=== PATIENT | male | born 1960 | race Caucasian/White ===

== ENCOUNTER 2019-05-10 17:02 | Emergency (ER) | payer OTHER ==
--- OUTSIDE RECORDS SUMMARY | 2019-05-10 17:09 | XMS REPORT | Continuity of Care Document ---
:1960 External Reference #:[id number] Author Name Ki Hicks MD Address [address] [place] [address] Care Team Providers Name Role Phone Derek Bass MD - Surgery Care Team Information Music Coordinator Baljit Diego MD - Otolaryngology Care Team Information Music Coordinator [phone] [facility] Care Team Information Music Coordinator Heath Patrick MD - Care Team Information Music Coordinator [phone] Gastroenterology Bernardo Melgar MD - Care Team Information Music Coordinator [phone] Gastroenterology Ki Hicks MD - Internal Care Team Information Music Coordinator Medicine Problems Active Problems Provider Date Restless legs Iona Reddy MD Onset: 03/31/2015 Generalized anxiety disorder Iona Reddy MD Onset: 03/31/2015 Osteoarthritis Irina Lema PA-C Onset: 11/20/2015 Note: R knee (xray Oct 2015) with small effusion. R hand Derangement of medial meniscus Steve Llanos M.D. Onset: 05/02/2016 Impotence of organic origin Iona Reddy MD Onset: 07/25/2017 Mild intermittent asthma Iona Reddy MD Onset: 07/25/2017 Insomnia Iona Reddy MD Onset: 07/25/2017 Chronic fatigue syndrome Iona Reddy MD Onset: 07/25/2017 Social History Type Date Description Comments Sex Unknown Tobacco Use Start: Unknown Never Smoked Cigarettes Smoking Status Reviewed: 03/30/19 Never Smoked Cigarettes ETOH Use Uses Alcohol Daily ETOH Use daily drink Tobacco Use Start: Unknown Patient denies history of smoking Recreational Drug Use Marijuana Former-as a teen Allergies, Adverse Reactions, Alerts Active Allergies Reaction Severity Comments Date NKDA 07/25/2017 Dust 03/31/2015 Inactive Allergies Dust Mites 03/31/2015 Medications Active Medications SIG Qnty Indications Ordering Date Provider Fenofibrate 1 tab by mouth 30caps E78.5 Iona Reddy, 09/15/2018 Micronized every day 67mg Capsules Bupropion take 1 tablet by 30tabs Z53.20 Iona Reddy, 08/04/2018 Hydrochloride ER (XL) mouth every morning MD 150mg Tablets ER 24HR Tadalafil 1 tab by mouth as 14tabs Iona Reddy, 08/04/2018 10mg Tablets needed 30 min prior MD to intercourse Ventolin HFA 1-2 puffs every 4-6 8gm Iona Reddy, 04/02/2016 hours as needed 108(90Base) mcg/Act Aerosol Medications Administered in Office Medication SIG Qnty Indications Ordering Provider Date Methylprednisolone acetate Sendy Khan, 12/21/2015 (Depomedrol) 80mg injection RPAC Injection Immunizations CPT Code Status Date Vaccine Lot # [id number] Given 07/05/2016 Td Preservative Free For Use In Individuals 7 Yrs [id number] Or Older [id number] Given 02/02/2016 Influenza Virus Vaccine Split Virus Use For [id number] Individual 3Yr Older Vital Signs Date Vital Result Comment 03/30/2019 7:49am BP Systolic Sitting Left Arm 120 mmHg BP Diastolic Sitting Left Arm 70 mmHg Body Temperature 97.1 F Heart Rate 69 /min Respiratory Rate 18 /min Height 71 inches 5'11" Weight 236.00 lb BMI (Body Mass Index) 32.9 kg/m2 BSA (Body Surface Area) 2.26 m2 [place] body weight in kilograms 78 kg O2 % BldC Oximetry 96 % Ra 09/15/2018 3:23pm BP Systolic Sitting Left Arm 122 mmHg BP Diastolic Sitting Left Arm 80 mmHg Body Temperature 98.3 F Heart Rate 72 /min Respiratory Rate 18 /min Height 71 inches 5'11" Weight 224.00 lb BMI (Body Mass Index) 31.2 kg/m2 BSA (Body Surface Area) 2.21 m2 [place] body weight in kilograms 78 kg O2 % BldC Oximetry 95 % Ra Results Description No Information Available Procedures Date Code Description Status 08/26/2016 13509658 Colonoscopy Completed Medical Devices Description No Information Available Encounters Type Date Location Provider Dx Diagnosis Office Visit 03/30/2019 [facility] [id number] Proc/trtmt not crd 7:50a Office MD Ki out bec pt decision for unsp reasons E78.5 Hyperlipidemia, unspecified R53.82 Chronic fatigue, unspecified F41.1 Generalized anxiety disorder Z91.14 Patient's other noncompliance with medication regimen Z28.21 Immunization not carried out because of patient refusal Assessments Date Code Description Provider 03/30/2019 Z53.20 Procedure and treatment not carried out Ki Hicks MD because of patient's decision for unspecified reasons 03/30/2019 E78.5 Hyperlipidemia, unspecified Ki Hicks MD 03/30/2019 R53.82 Chronic fatigue, unspecified Ki Hicks MD 03/30/2019 F41.1 Generalized anxiety disorder Ki Hicks MD 03/30/2019 Z91.14 Patient's other noncompliance with Ki Hicks MD medication regimen 03/30/2019 Z28.21 Immunization not carried out because of Ki Hicks MD patient refusal Plan of Treatment Future Appointment(s):09/28/2019 7:30 am - Ki Hicks MD at Primary [facility] [id number]/30/2019 - Ki Hicks MDZ53.20 Procedure and treatment not carried out because of patient's decision for unspecified wiahqonQ77.5 Hyperlipidemia, unspecifiedFollow up:f/u 6 months labs prior to opmouF38.82 Chronic fatigue, qpoiaxxchdoW10.1 Generalized anxiety tspcayevF62.14 Patient's other noncompliance with medication [id number] Immunization not carried out because of patient refusal Functional Status Functional Condition Comment Date Status Independent with all ADL's Active Mental Status Description No Information Available Referrals Description No Information Available
--- NOTE | 2019-05-10 17:19 | UC ---
Abdominal Pain Male HPI - HPI Summary HPI Summary: The patient is a 59-year-old male with a 2 month or greater history of abdominal pain. He states that his pain is primarily upper abdomen. He states that he has hard time eating. He states he eats one bite and feels full. He denies any weight loss. He has been able to take liquids without difficulty. He states that he is having some constipation. He states that he had a colonoscopy about 3 years ago and it was normal. He has had no bloody stool. He denies any black or tarry stool. He denies any dyspepsia. He has had no urinary difficulties. He states his abdomen feels bloated. - History of Current Complaint Chief Complaint: UCAbdominalPain Stated Complaint: ABDOMINAL PAIN Hx Obtained From: Patient Onset/Duration: Gradual Onset, Lasting Weeks - mos Timing: Constant Severity Initially: Mild Severity Currently: Mild Pain Intensity: 3 Pain Scale Used: 0-10 Numeric Location: Epigastric Radiates: No Character: Sharp Aggravating Factor(s): Food Alleviating Factor(s): Nothing Associated Signs And Symptoms: Positive: Constipation, Decreased Appetite Male Torso: 1 - pain - Allergies/Home Medications Allergies/Adverse Reactions: Allergies Allergy/AdvReac Type Severity Reaction Status Date / Time No Known Allergies Allergy Verified 05/10/19 17:18 PMH/Surg Hx/FS Hx/Imm Hx Previously Healthy: Yes - Surgical History Surgical History: None - Family History Known Family History: Positive: Hypertension, Non-Contributory - Social History Alcohol Use: Occasionally Substance Use Type: None Smoking Status (MU): Never Smoked Tobacco Review of Systems All Other Systems Reviewed And Are Negative: Yes Constitutional: Positive: Negative Skin: Positive: Negative Eyes: Positive: Negative ENT: Positive: Negative Respiratory: Positive: Negative Cardiovascular: Positive: Negative Gastrointestinal: Positive: Abdominal Pain Genitourinary: Positive: Negative Motor: Positive: Negative Neurovascular: Positive: Negative Musculoskeletal: Positive: Negative Neurological/Mental Status: Positive: Negative Psychological: Positive: Negative Physical Exam Triage Information Reviewed: Yes Appearance: Well-Appearing, No Pain Distress, Well-Nourished Vital Signs: Initial Vital Signs Temp 98.3 F 05/10/19 17:12 Pulse 67 05/10/19 17:12 Resp 16 05/10/19 17:12 BP 143/82 05/10/19 17:12 Pulse Ox 98 05/10/19 17:12 Vital Signs Reviewed: Yes Eyes: Positive: Conjunctiva Clear ENT: Positive: Hearing grossly normal, Uvula midline. Negative: Nasal congestion, Nasal drainage, Trismus, Muffled voice, Hoarse voice Dental Exam: Normal Neck: Positive: Supple, Nontender, No Lymphadenopathy Respiratory: Positive: Lungs clear, Normal breath sounds, No respiratory distress, No accessory muscle use Cardiovascular: Positive: RRR, No Murmur Abdomen Description: Positive: No Organomegaly, Soft, Hernia @ - ventral. Negative: CVA Tenderness (R), CVA Tenderness (L) Bowel Sounds: Positive: Present Musculoskeletal: Positive: ROM Intact, No Edema Neurological: Positive: Alert Psychological Exam: Normal Skin Exam: Normal Abd Pain Male Course/Dx - Differential Dx/Clinical Impression Provider Diagnosis: Early satiety, Chronic abdominal pain, Ventral hernia Discharge ED - Sign-Out/Discharge Documenting (check all that apply): Patient Departure All imaging exams completed and their final reports reviewed: No - Discharge Plan Condition: Stable Disposition: HOME Patient Education Materials: Chronic Abdominal Pain (ED), Ventral Hernia (ED) Referrals: Jordan Wan MD [Medical Doctor] - 2 Weeks (see Dr. Wan re ventral hernia) Bryanna Watkins MD [Medical Doctor] - As Soon As Possible (about chronic upper abd pain and feeling full after only a bite) - Billing Disposition and Condition Condition: STABLE Disposition: Home
[2019-05-10 17:25] VITALS: BP 143/82
--- NOTE | 2019-05-11 07:21 | UC ---
- Progress Note Progress Note: RADIOLOGY REPORT REVIEWED. NONOBSTRUCTIVE BOWEL GAS PATTERN WITH MODERATE STOOL VOLUME. NO CHANGE IN MGMT. Course/Dx - Diagnoses Provider Diagnoses: Early satiety, Chronic abdominal pain, Ventral hernia Discharge ED - Sign-Out/Discharge Documenting (check all that apply): Post-Discharge Follow Up All imaging exams completed and their final reports reviewed: Yes - Discharge Plan Condition: Stable Disposition: HOME Prescriptions: Famotidine TAB* [Pepcid 20 MG TAB*] 20 mg PO DAILY #14 tab Patient Education Materials: Ventral Hernia (ED), Chronic Abdominal Pain (ED) Referrals: Jordan Wan MD [Medical Doctor] - 2 Weeks (see Dr. Wan re ventral hernia) Bryanna Watkins MD [Medical Doctor] - As Soon As Possible (about chronic upper abd pain and feeling full after only a bite) Additional Instructions: mylanta 30 ml (2 tablespoons) every 2 hours while awake for three days - Billing Disposition and Condition Condition: STABLE Disposition: Home
== END 2019-05-10 18:39 | disposition home or self-care (01) ==
LOC: UCEAST 17:02
DX: G89.29 Other chronic pain (principal); R10.9 Unspecified abdominal pain; K43.9 Ventral hernia without obstruction or gangrene; R68.81 Early satiety
CPT/HCPCS: 74019; 81003; 99212; G0463